=== PATIENT | female | born 1935 | race Caucasian/White ===

== ENCOUNTER 2021-04-18 15:51 | Emergency (ER) | payer MEDICARE | END 2021-04-18 21:00 | disposition home or self-care (01) | LOC: ER1 15:51 | DX: S42.202A Unspecified fracture of upper end of left humerus, initial encounter for closed fracture (principal); S43.035A Inferior dislocation of left humerus, initial encounter; W01.10XA Fall on same level from slipping, tripping and stumbling with subsequent striking against unspecified object, initial encounter | CPT/HCPCS: 73030; 73200; 99284 ==

== ENCOUNTER 2022-01-23 09:11 | Emergency (ER) | payer MEDICARE ==
[2022-01-23] MEDS ORDERED: ANUSOL-HC CREAM30 GM PR (12:09)
[2022-01-23] MEDS ORDERED: OMNICEF 300 MG300 MG PO (12:09)
== END 2022-01-23 12:24 | disposition home or self-care (01) ==
LOC: ER1 09:11
DX: K64.4 Residual hemorrhoidal skin tags (principal); N39.0 Urinary tract infection, site not specified; I10 Essential (primary) hypertension
CPT/HCPCS: 81001; 82272; 87077; 87086; 87186; 99283